=== PATIENT | female | born 1970 | race Caucasian/White ===

== ENCOUNTER → 2020-01-01 | Outpatient (CLI) | payer MEDICAID ==
[2020-01-01 10:13] LABS: Basophils # (auto) 0.1 10 ^3/uL (0-0.2); Basophils % (auto) 0.9 % (0.0-2.0); Eosinophils # (auto) 0.4 10 ^3/uL (0-0.8); Eosinophils % (auto) 3.9 % (0.0-7.0); Hematocrit 41.3 % (36.0-46.0); Hemoglobin 13.6 g/dL (12.2-16.2); Lymphocytes # (auto) 2.4 10 ^3/uL (0.4-5.4); Lymphocytes % (auto) 22.6 % (10.0-50.0); Mean Corpuscular Hemoglobin 29.2 pg (28.0-32.0); Mean Corpuscular Volume 88.7 fL (80.0-100.0); Monocytes # (auto) 0.6 10 ^3/uL (0-1.3); Monocytes % (auto) 5.7 % (0.0-12.0); Neutrophils # (auto) 7.1 10 ^3/uL (1.6-8.6); Neutrophils % (auto) 66.9 % (37.0-80.0); Nucleated Red Blood Cells % 0.1 %; Platelet Count (auto) 315 10^3/uL (140-450); Red Blood Cells 4.65 10^6/uL (4.0-5.20); Red Cell Distribution Width 15.9 % (11.8-14.3); White Blood Cell 10.7 10^3/uL (4.4-10.8)
== END | disposition home or self-care (01) ==
LOC: LAB 09:53
PROVIDERS: ATTEND Specialist
DX: L02.224 Furuncle of groin (principal)
CPT/HCPCS: 36415; 83036; 85025; 86592; 86695; 86696

== ENCOUNTER 2020-01-18 20:35 | Inpatient (IN) | payer MEDICAID, OTHER ==
[~2020-01-18] VITALS: Ht 177.8 cm; Wt 137.4 kg
[2020-01-18] MEDS ORDERED: FUROSEMIDE 20 MG/2 ML VIAL IV ONE (21:45)
[2020-01-18] MEDS ORDERED: ALBUTEROL SULF 2.5 MG/0.5ML(0.5%) NEB SOLN NEB ONE (21:45)
[2020-01-18] MEDS ORDERED: IPRATROPIUM BROM 0.5 MG/2.5ML INH SOL NEB ONE (21:45)
[2020-01-18 22:09] LABS: Basophils # (auto) 0 10 ^3/uL (0-0.2); Eosinophils # (auto) 0.1 10 ^3/uL (0-0.8); Eosinophils % (auto) 0.5 % (0.0-7.0); Hematocrit 40.2 % (36.0-46.0); Hemoglobin 12.9 g/dL (12.2-16.2); Lymphocytes # (auto) 0.6 10 ^3/uL (0.4-5.4); Lymphocytes % (auto) 3.3 % (10.0-50.0); Mean Corpuscular Hemoglobin 28.6 pg (28.0-32.0); Mean Corpuscular Hgb Conc. 32.2 g/dL (32.0-36.0); Mean Corpuscular Volume 88.9 fL (80.0-100.0); Monocytes # (auto) 0.9 10 ^3/uL (0-1.3); Monocytes % (auto) 4.9 % (0.0-12.0); Neutrophils # (auto) 17.6 10 ^3/uL (1.6-8.6); Neutrophils % (auto) 91.3 % (37.0-80.0); Nucleated Red Blood Cells % 0.1 %; Platelet Count (auto) 290 10^3/uL (140-450); Red Blood Cells 4.52 10^6/uL (4.0-5.20); Red Cell Distribution Width 16.3 % (11.8-14.3); White Blood Cell 19.3 10^3/uL (4.4-10.8)
[2020-01-18 22:19] LABS: INR 0.99 (0.9-1.15); Partial Thromboplastin Time 26.8 sec (23.64-32.05)
[2020-01-18 22:23] LABS: Alanine Aminotransferase 21 U/L (13-56); Albumin 2.9 g/dL (3.4-5.0); Anion Gap 8 (5-15); Aspartate Aminotransferase 19 U/L (15-37); BUN/Creatinine Ratio 12.4; Blood Urea Nitrogen 11 mg/dL (7-18); Calcium 8.3 mg/dL (8.5-10.1); Carbon Dioxide 25 mmol/L (21-32); Chloride 101 mmol/L (98-107); GFR African American 87 mL/min; GFR Non-African American 72 mL/min; Glucose 114 mg/dL (74-106); Magnesium 1.8 mg/dL (1.6-2.6); Potassium 4.1 mmol/L (3.5-5.1); Sodium 134 mmol/L (136-145)
[2020-01-18 22:28] LABS: Alkaline Phosphatase 81 U/L (45-117); Bilirubin, Total 0.7 mg/dL (0.2-1.0); Total Protein 6.9 g/dL (6.4-8.2)
[2020-01-19 00:07] LABS: Lactic Acid w/Reflex 2.2 mmol/L (0.4-2.0)
[2020-01-19] MEDS ORDERED: FUROSEMIDE 20 MG/2 ML VIAL IV ONE (00:15)
[2020-01-19] MEDS ORDERED: THIAMINE 100mg/ml INJ (200mg/2ml VIAL) IV ONE (00:15)
[2020-01-19 03:29] LABS: Urine Bacteria FEW /hpf (None Seen); Urine Blood 1+ /uL (Negative); Urine Hyaline Cast FEW /lpf (0 - 2); Urine Mucus FEW (None Seen); Urine WBC 25 /hpf (0 - 5)
[2020-01-19] MEDS ORDERED: levoFLOXacin 750MG 150 ML IV ONE (03:45)
[2020-01-19] MEDS ORDERED: SODIUM CHLORIDE 0.9% 1,000 ML IV SCH ×2 (04:58→05:06)
[2020-01-19] MEDS ORDERED: TEMAZEPAM 15 MG CAP PO PRN (05:00)
[2020-01-19] MEDS ORDERED: NITROGLYCERIN 0.4 MG SL TAB SL PRN (05:00)
[2020-01-19] MEDS ORDERED: ONDANSETRON HCL 4 MG/2 ML VIAL IV PRN (05:00)
[2020-01-19] MEDS ORDERED: HYDROcodone-ACET 5/325MG TAB PO PRN (05:00)
[2020-01-19] MEDS ORDERED: MORPHINE SULF INJ 2 MG/ML SYRINGE 1ML IV PRN ×2 (05:00)
[2020-01-19] MEDS ORDERED: DOCUSATE SOD 100 MG CAP PO PRN (05:00)
[2020-01-19] MEDS ORDERED: ALBUTEROL SULF 2.5 MG/0.5ML(0.5%) NEB SOLN NEB PRN (05:00)
[2020-01-19] MEDS ORDERED: IPRATROPIUM BROM 0.5 MG/2.5ML INH SOL NEB PRN (05:00)
[2020-01-19 07:25] LABS: Basophils # (auto) 0 10 ^3/uL (0-0.2); Basophils % (auto) 0.2 % (0.0-2.0); Eosinophils # (auto) 0.1 10 ^3/uL (0-0.8); Eosinophils % (auto) 0.4 % (0.0-7.0); Hematocrit 35.8 % (36.0-46.0); Hemoglobin 11.5 g/dL (12.2-16.2); Lymphocytes # (auto) 1.6 10 ^3/uL (0.4-5.4); Mean Corpuscular Hemoglobin 28.7 pg (28.0-32.0); Mean Corpuscular Hgb Conc. 32.1 g/dL (32.0-36.0); Mean Corpuscular Volume 89.2 fL (80.0-100.0); Monocytes # (auto) 1.4 10 ^3/uL (0-1.3); Monocytes % (auto) 6.2 % (0.0-12.0); Neutrophils # (auto) 19.2 10 ^3/uL (1.6-8.6); Neutrophils % (auto) 86.2 % (37.0-80.0); Platelet Count (auto) 246 10^3/uL (140-450); Red Blood Cells 4.01 10^6/uL (4.0-5.20); Red Cell Distribution Width 16.6 % (11.8-14.3); White Blood Cell 22.2 10^3/uL (4.4-10.8)
[2020-01-19] MEDS ORDERED: methylPREDNISolone SOD SUCC 125 MG/2 ML VL ONE (07:38)
[2020-01-19] MEDS ORDERED: methylPREDNISolone SOD SUCC 125 MG/2 ML VL IV ONE (07:45)
[2020-01-19 07:47] LABS: Calcium 7.6 mg/dL (8.5-10.1); Potassium 3.6 mmol/L (3.5-5.1)
[2020-01-19 07:52] LABS: BUN/Creatinine Ratio 13.2
[2020-01-19] MEDS ORDERED: SODIUM CHLORIDE 0.9% 500 ML IV ONE (08:00)
[2020-01-19] MEDS: ALBUMIN 25% 100 ML IV SCH ×2 (09:50→11:00)
[2020-01-19] MEDS ORDERED: CLOPIDOGREL BISULFATE 75 MG TAB PO SCH (10:00)
[2020-01-19] MEDS ORDERED: LISINOPRIL 10 MG TAB PO SCH (10:00)
[2020-01-19] MEDS ORDERED: CARVEDILOL 3.125 MG TAB PO SCH (10:00)
[2020-01-19 10:02] LABS: CRP High Sensitivity 13.3 mg/dL (< 0.3)
--- NOTE | 2020-01-19 10:24 | NUR ---
ARRIVAL NOTE: PATIENT ARRIVED FROM ER VIA GURNEY. PATIENT TRANSPORTED TO ROOM ON WHEELCHAIR. ON TELEMETRY MONITORING RUNNING SINUS RHYTHM. PATIENT PRESENTING WITH LABORED BREATHING. ON 5L NC WITH OXYGEN SATURATIONS AT 95%. PATIENT REPORTS GENERALIZED WEAKNESS AND BODY ACHE THAT SUDDENLY BEGAN YESTERDAY WHILE AT A [facility]. PATIENT REPORTS TAKING TRAMADOL WITH NO RELIEF OF BODY ACHES AND THEN DECIDED TO COME INTO HOSPITAL. PATIENT HAS BILATERAL PITTING EDEMA +2 STATES THAT THIS DOES OCCUR TO HER AND SOMETIMES SWELL EVEN MORE THAN CURRENT STATUS BUT ONLY ON RIGHT FOOT/ANKLE. PATIENT STATES SHE HAS BEEN USING METH FOR 27 YEARS. REPORTS NO MEDICAL HISTORY. INSTRUCTED ON POC. INSTRUCTED TO LAY IN BED IN HIGH FOWLERS TO ASSIST WITH BREATHING. BED IN LOWEST LOCKED POSITION WITH CALL LIGHT WITHIN REACH. WILL CONTINUE CARE.
--- NOTE | 2020-01-19 10:25 | NUR ---
REGARDING COVID SWAB: COVID SWAB OBTAINED BY RN AND WALKED OVER TO LAB BY [facility].
[2020-01-19 10:29] VITALS: BP 111/77
[2020-01-19] MEDS: cefTRIAXone 1GM/50ML D5W 50 ML IV SCH (10:54)
[2020-01-19] MEDS: ASPirin 81 mg TAB PO SCH (10:54)
--- NOTE | 2020-01-19 10:57 | NUR ---
REGARDING ALBUMIN: PAGED Olga LOPEZ REGARDING PATIENT STATUS. INFORMED OF O2 SATURATIONS ON 5L NC AND BLOOD PRESSURE OF 111/77 AFTER FIRST BAG OF ALBUMIN. INSTRUCTED TO GIVE LASIX 40MG IV ONE TIME AND HOLD SECOND BAG. ALSO INSTRUCTED TO COLLECT URINE DRUG SCREEN. TORB. WILL FOLLOW THROUGH.
[2020-01-19] MEDS ORDERED: FUROSEMIDE 40 MG/4 ML VIAL IV ONE (11:15)
[2020-01-19] MEDS: AZITHROMYCIN 500MG/ 250ML 250 ML IV SCH (11:59)
--- NOTE | 2020-01-19 12:07 | NUR ---
PATIENT REPORTS UNPRODUCTIVE COUGH. INSTRUCTED TO COUGH ANY SPUTUM INTO SAMPLE CUP IF POSSIBLE. VERBALIZED UNDERSTANDING.
[2020-01-19 14:00] VITALS: BP 120/72
[2020-01-19 15:20] LABS: Alcohol, Urine < 3.0 mg/dL (0-10); Amphetamine Screen, Urine POSITIVE (NEGATIVE); Barbiturate Scree,Urine NEGATIVE (NEGATIVE); Benzodiazephine Screen, Urine NEGATIVE (NEGATIVE); Cannabinoid Screen, Urine NEGATIVE (NEGATIVE); Cocaine Screen, Urine NEGATIVE (NEGATIVE); Opiate Scree,Urine NEGATIVE (NEGATIVE); Phencyclidine Screen, Urine NEGATIVE (NEGATIVE)
--- NOTE | 2020-01-19 16:54 | NUR ---
CALLED TO INFORM Olga LOPEZ OF PATIENTS NEGATIVE COVID STATUS. NO NEW ORDERS RECEIVED.
--- NOTE | 2020-01-19 17:20 | NUR ---
Olga LOPEZ AT BEDSIDE.
[2020-01-19 17:26] VITALS: BP 120/72
[2020-01-19 17:30] VITALS: BP 139/90
[2020-01-19] MEDS: FUROSEMIDE 40 MG/4 ML VIAL IV SCH (18:17)
--- NOTE | 2020-01-19 19:11 | NUR ---
SPOKE TO Olga MORALEZ REGARDING PATIENT STAYING IN COVID UNIT DUE TO NO AVAILABLE BEDS ON THE FLOOR. INFORMED PATIENT HAS ORDERS FOR NEBULIZING BUT THEY ARE NOT ABLE TO BE GIVEN IN THIS UNIT. STATED OK TO GIVE INHALER IN THE MEANTIME.
--- NOTE | 2020-01-19 19:30 | NUR ---
Assume Care of Patient Assumed care of patient, from Harjinder CLINE. Patient noted sitting at the edge of the bed eating her dinner, with even and unlabored respirations. No sign/symptoms of distress noted at this time.
[2020-01-19] MEDS: IPRATROPIUM BROM 0.5 MG/2.5ML INH SOL NEB SCH (20:14)
[2020-01-19] MEDS: ALBUTEROL SULF 2.5 MG/0.5ML(0.5%) NEB SOLN NEB SCH (20:14)
[2020-01-19 20:15] VITALS: BP 122/87
--- NOTE | 2020-01-19 20:20 | NUR ---
Rounds Patient is alert and oriented x4. Patient denies pain at this time. Patient noted to be on 3L nasal cannula with oxygen saturation between 88-89%, this RN titrated oxygen up to 4L via NC. Patient's current oxygen saturation is between 90% to 91%. Patient complains of slight shortness of breath. Patient reports her shortness of breath has improved since her arrival to the hospital. Instructed patient to cough and take deep breathes. No sign/symptoms of distress noted or verbalized at this time. Instructed on plan of care and to call for assistance as needed, patient verbalized understanding. Incentive spirometer noted at the bedside. Educated patient on the purpose of the incentive spirometer, how to properly use it, and how often to use it, patient verbalized understanding and returned demonstration. Patient able to raise marker to 1,000ml. Bed is locked in lowest position, side rails x 2 are up, call light is within reach, and bedside commode is at the bedside.
[2020-01-19] MEDS: ACETAMINOPHEN 325 MG TAB PO PRN (20:56)
[2020-01-19] MEDS: POTASSIUM CHL 20 Meq TABLET PO SCH (20:56)
--- NOTE | 2020-01-19 21:00 | NUR ---
Rounds Patient is laying in bed with even and unlabored respirations. Patient is complaining of a headache and has been medicated for her headache (see eMAR). Patient is on 4L NC with oxygen saturation at 96%. No sign/symptoms of distress noted or verbalized at this time. Will continue care.
[2020-01-19] MEDS ORDERED: ATORVASTATIN 20 MG TAB PO SCH (22:00)
[2020-01-19] MEDS ORDERED: ALBUTEROL SULF HFA 90MCG INH 200DOSE IN SCH (22:00)
[2020-01-19] MEDS: BUDESONIDE (INHALATION) 0.5 MG/2 ML NEB NEB SCH (22:24)
--- NOTE | 2020-01-20 01:00 | NUR ---
RT NOTE: PT SLEEPING WITH NO DISTRESS ON 4LPM NC SPO2 96%. MED NEB TX HELD AT THIS TIME.
--- NOTE | 2020-01-20 01:30 | NUR ---
Report Given Report given to Keara CLINE.
--- NOTE | 2020-01-20 01:55 | NUR ---
Patient Transferred Out of Covid Unit Patient transferred from 239 to [address] via wheelchair, connected to portable oxygen at 4L/min via NC, accompanied by Keara CLINE. No sign/symptoms of distress noted upon departure.
--- NOTE | 2020-01-20 01:56 | NUR ---
Received report from Missy CLINE. Patient transported from room 239 to [address] via wheelchair and connected to portable oxygen at 4L/min via nasal cannula. All personal belongings transported with patient. She is now resting in bed, updated on current POC, connected to oxygen. Bedside commode is at bedside. Call light is within reach, side rails up x2, bed is in the lowest position. Will continue to monitor.
[2020-01-20 03:56] VITALS: BP 118/70
[2020-01-20] MEDS: FUROSEMIDE 40 MG/4 ML VIAL IV SCH ×2 (05:38→18:00)
[2020-01-20] MEDS: ACETAMINOPHEN 325 MG TAB PO PRN (06:12)
[2020-01-20 06:36] LABS: Basophils # (auto) 0 10 ^3/uL (0-0.2); Basophils % (auto) 0.1 % (0.0-2.0); Eosinophils # (auto) 0 10 ^3/uL (0-0.8); Hematocrit 35.6 % (36.0-46.0); Hemoglobin 11.4 g/dL (12.2-16.2); Lymphocytes % (auto) 4.4 % (10.0-50.0); Mean Corpuscular Hemoglobin 28.8 pg (28.0-32.0); Mean Corpuscular Hgb Conc. 31.9 g/dL (32.0-36.0); Mean Corpuscular Volume 90.5 fL (80.0-100.0); Monocytes # (auto) 1.1 10 ^3/uL (0-1.3); Monocytes % (auto) 4.8 % (0.0-12.0); Neutrophils # (auto) 21.3 10 ^3/uL (1.6-8.6); Neutrophils % (auto) 90.7 % (37.0-80.0); Nucleated Red Blood Cells % 0.1 %; Platelet Count (auto) 243 10^3/uL (140-450); Red Blood Cells 3.94 10^6/uL (4.0-5.20); Red Cell Distribution Width 16.2 % (11.8-14.3); White Blood Cell 23.5 10^3/uL (4.4-10.8)
[2020-01-20] MEDS: IPRATROPIUM BROM 0.5 MG/2.5ML INH SOL NEB SCH ×3 (06:41→11:37)
[2020-01-20] MEDS: ALBUTEROL SULF 2.5 MG/0.5ML(0.5%) NEB SOLN NEB SCH ×3 (06:41→11:37)
[2020-01-20] MEDS: BUDESONIDE (INHALATION) 0.5 MG/2 ML NEB NEB SCH (06:46)
[2020-01-20 07:00] LABS: Potassium 3.9 mmol/L (3.5-5.1)
[2020-01-20 07:07] LABS: BUN/Creatinine Ratio 20.3; Calcium 8.6 mg/dL (8.5-10.1)
--- NOTE | 2020-01-20 07:55 | NUR ---
Opening Shift Note Assumed care of patient, awake and alert. No S/S of distress/SOB or pain. Instructed on POC and to call for assist PRN, will continue to monitor for changes Q1hr and PRN.
[2020-01-20] MEDS: cefTRIAXone 1GM/50ML D5W 50 ML IV SCH (09:16)
[2020-01-20] MEDS: ASPirin 81 mg TAB PO SCH (09:17)
[2020-01-20] MEDS: AZITHROMYCIN 500MG/ 250ML 250 ML IV SCH (09:17)
[2020-01-20] MEDS: POTASSIUM CHL 20 Meq TABLET PO SCH (09:17)
[2020-01-20] MEDS ORDERED: MORPHINE SULF INJ 2 MG/ML SYRINGE 1ML IV PRN (12:15)
[2020-01-20 16:42] VITALS: BP 126/77
[2020-01-20] MEDS ORDERED: PIPERACILLIN-TAZOB 3.375GM 100 ML IV SCH (18:00)
--- NOTE | 2020-01-20 18:30 | NUR ---
Refused Medications Patient talking on the phone. She refused her medications and states that she wants to go home. Notified her of the importance of the medications, patient still refused and states that she is going home and will follow up with her PCP. She cannot remember the name of her PCP but states she just got the information in the mail.
--- NOTE | 2020-01-20 18:55 | NUR ---
AMA Note NIKKI SHPEPARD states they want to leave the hospital Against Medical Advice (AMA). Patient encouraged to stay for further treatment/stabilization. Patient advised of the risks and benefits of leaving AMA. Patient verbalized understanding. Patient encouraged to return to the ER if symptoms do not improve or worsen.
[2020-01-21] MEDS ORDERED: AZITHROMYCIN 500MG/ 250ML 250 ML IV SCH (10:00)
== END 2020-01-20 18:55 | disposition left against medical advice (07) | DRG 720 ==
LOC: ER 20:35 → TELE 20:36 → TELE-EAST 01-19 10:20 → TELE-WESTW 01-20 02:05
PROVIDERS: ADMIT Hospitalist; ATTEND Internal Medicine
DX: A41.9 Sepsis, unspecified organism (principal); J96.00 Acute respiratory failure, unspecified whether with hypoxia or hypercapnia; I50.33 Acute on chronic diastolic (congestive) heart failure; E66.01 Morbid (severe) obesity due to excess calories; I27.21 Secondary pulmonary arterial hypertension; J18.9 Pneumonia, unspecified organism; J44.0 Chronic obstructive pulmonary disease with (acute) lower respiratory infection; J45.901 Unspecified asthma with (acute) exacerbation; Z20.828 Contact with and (suspected) exposure to other viral communicable diseases; Z53.29 Procedure and treatment not carried out because of patient's decision for other reasons; T43.625A Adverse effect of amphetamines, initial encounter; I25.10 Atherosclerotic heart disease of native coronary artery without angina pectoris; J44.1 Chronic obstructive pulmonary disease with (acute) exacerbation; N39.0 Urinary tract infection, site not specified; F15.10 Other stimulant abuse, uncomplicated; Z68.41 Body mass index [BMI] 40.0-44.9, adult; Z71.6 Tobacco abuse counseling; Y92.89 Other specified places as the place of occurrence of the external cause; Z79.899 Other long term (current) drug therapy
CPT/HCPCS: 36415; 36600; 71045; 71260; 80048; 80053; 80061; 80307; 80320; 81001; 82728; 82805; 83605; 83615; 83735; 83880; 84443; 84484; 85025; 85379; 85610; 85730; 86141; 87040; 87086; 93005; 93306; 93970; 94640; 96361; 96365; 96375; 97163; G0378; J0696; J1956; J2405; J2543; P9047

== ENCOUNTER 2021-01-16 16:13 | Emergency (ER) | payer OTHER ==
[~2021-01-16] VITALS: Ht 175.3 cm; Wt 117.9 kg
[2021-01-16 16:45] VITALS: BP 139/84
== END 2021-01-16 16:54 | disposition left against medical advice (07) ==
LOC: ER 16:13 → EDBD 16:13 → ER 16:54
DX: M79.604 Pain in right leg (principal); Z53.21 Procedure and treatment not carried out due to patient leaving prior to being seen by health care provider

== ENCOUNTER 2022-06-27 21:14 | Emergency (ER) | payer OTHER ==
[~2022-06-27] VITALS: Ht 157.5 cm; Wt 127.0 kg
[2022-06-27 22:35] LABS: Basophils # (auto) 0 10 ^3/uL (0-0.2); Basophils % (auto) 0.2 % (0.0-2.0); Eosinophils # (auto) 0.3 10 ^3/uL (0-0.8); Eosinophils % (auto) 1.7 % (0.0-7.0); Hematocrit 44.9 % (36.0-46.0); Hemoglobin 14.5 g/dL (12.2-16.2); Lymphocytes # (auto) 5.6 10 ^3/uL (0.4-5.4); Lymphocytes % (auto) 36.4 % (10.0-50.0); Mean Corpuscular Hemoglobin 28.1 pg (28.0-32.0); Mean Corpuscular Hgb Conc. 32.2 g/dL (32.0-36.0); Mean Corpuscular Volume 87.1 fL (80.0-100.0); Monocytes # (auto) 0.9 10 ^3/uL (0-1.3); Monocytes % (auto) 5.9 % (0.0-12.0); Neutrophils # (auto) 8.6 10 ^3/uL (1.6-8.6); Neutrophils % (auto) 55.8 % (37.0-80.0); Nucleated Red Blood Cells % 0.2 %; Red Blood Cells 5.16 10^6/uL (4.0-5.20); Red Cell Distribution Width 14.7 % (11.8-14.3); White Blood Cell 15.5 10^3/uL (4.4-10.8)
[2022-06-27 22:52] LABS: Albumin 3.5 g/dL (3.4-5.0); Calcium 9.3 mg/dL (8.5-10.1)
[2022-06-27 22:55] LABS: Bilirubin, Total 0.4 mg/dL (0.2-1.0)
[2022-06-27 22:58] LABS: Potassium 4.3 mmol/L (3.5-5.1)
[2022-06-28] MEDS ORDERED: ALBUAER3 IN (06:41)
[2022-06-28] MEDS ORDERED: AZIT250T9 PO (06:41)
[2022-06-28] MEDS ORDERED: PRED20TA2 PO (06:41)
[2022-06-28] MEDS ORDERED: predniSONE 20 MG TAB PO ONE (06:45)
[2022-06-28] MEDS ORDERED: AZITHROMYCIN 250 MG TAB PO ONE (06:45)
[2022-06-28 07:01] VITALS: BP 134/89
== END 2022-06-28 07:01 | disposition home or self-care (01) ==
LOC: ER 21:14
DX: J44.1 Chronic obstructive pulmonary disease with (acute) exacerbation (principal); J20.9 Acute bronchitis, unspecified; Z20.822 Contact with and (suspected) exposure to COVID-19
CPT/HCPCS: 36415; 80053; 83880; 84484; 85025; 87426; 93005; 99284; J7512